=== PATIENT | male | born 1990 ===

== ENCOUNTER 2016-09-17 17:22 | Emergency (ER) | payer BC, OTHER ==
[~2016-09-17] VITALS: Ht 188 cm; Wt 83.9 kg
[2016-09-17] MEDS ORDERED: CLON1TAB4 PO (17:51)
[2016-09-17] MEDS ORDERED: QUET100T PO (17:51)
[2016-09-17] MEDS ORDERED: subutex PO (17:51)
--- NOTE | 2016-09-17 18:19 | NUR ---
Patient is seen drinking water, NAD, denies suicidal or homicidal thoughts@this time.
--- NOTE | 2016-09-17 18:41 | NUR ---
Per Dr Kaplan, this patient is waiting for a [facility] staff to come see/evaluate this patient in ER department.
[2016-09-17] MEDS: CLONAZEPAM 0.5 MG TABLET PO ONE (18:50)
--- NOTE | 2016-09-17 18:51 | NUR ---
Patient discharged to home in stable conditon. Written and verbal after care instructions given to patient and his healthcare provider from the private detox program. Patient verbalizes understanding of instructions.
[2016-09-17] MEDS ORDERED: CLONAZEPAM 1 MG TABLET ONE (18:56)
== END 2016-09-17 18:53 | disposition home or self-care (01) ==
LOC: ER 17:30
DX: F11.23 Opioid dependence with withdrawal (principal); F32.9 Major depressive disorder, single episode, unspecified; F41.9 Anxiety disorder, unspecified
CPT/HCPCS: 99282; A4663

== ENCOUNTER 2017-08-13 18:54 | Inpatient (IN) | payer BC, OTHER ==
[~2017-08-13] VITALS: Ht 188 cm; Wt 77.1 kg
[~2017-08-13 18:54] MED LIST: CLON1TAB4 PO; QUET100T PO; subutex PO
[2017-08-13] MEDS ORDERED: diphenhydrAMINE 50 MG CAPSULE PO PRN (22:30)
[2017-08-13] MEDS ORDERED: METHOCARBAMOL 750 MG TABLET PO PRN (22:30)
[2017-08-13] MEDS ORDERED: ONDANSETRON 4 MG/2 ML VIAL IM PRN (22:30)
[2017-08-13] MEDS ORDERED: CLONIDINE HCL 0.1 MG TABLET PO PRN (22:30)
[2017-08-13] MEDS ORDERED: NICOTINE POLACRILEX 4 MG GUM-PK OF TEN BC PRN (22:30)
[2017-08-13] MEDS ORDERED: MAGNESIUM HYDROXIDE 30 ML LIQUID UDC PO PRN (22:30)
[2017-08-13] MEDS ORDERED: LOPERAMIDE HCL 2 MG CAPSULE PO PRN ×2 (22:30)
[2017-08-13] MEDS ORDERED: NICOTINE 14 MG/24HR PATCH TD PRN (22:30)
[2017-08-13] MEDS ORDERED: DOCUSATE SODIUM 250 MG CAPSULE PO PRN (22:30)
[2017-08-13] MEDS ORDERED: ACETAMINOPHEN 325 MG TABLET PO PRN (22:30)
[2017-08-13] MEDS ORDERED: ONDANSETRON ODT 4 MG TAB.RAPDIS SL PRN (22:30)
[2017-08-13] MEDS ORDERED: LORAZEPAM 1 MG TABLET PO PRN ×2 (22:30)
[2017-08-13] MEDS ORDERED: MIRALAX 17 GM POWD.PACK PO PRN (22:30)
[2017-08-13] MEDS ORDERED: IBUPROFEN 600 MG TABLET PO PRN (22:30)
[2017-08-13] MEDS ORDERED: DICYCLOMINE HCL 20 MG TABLET PO PRN (22:30)
[2017-08-13] MEDS ORDERED: BUPRENORPHINE HCL 2 MG TAB.SUBL SL PRN (22:30)
[2017-08-13] MEDS ORDERED: MAG HYDROX/AL HYDROX/SIMETH 30 ML LIQUID UDC PO PRN (22:30)
[2017-08-13] MEDS ORDERED: LORAZEPAM 2 MG/1 ML VIAL IM PRN (22:30)
[2017-08-13] MEDS ORDERED: LORAZEPAM 1 MG TABLET PO SCH (23:30)
--- NOTE | 2017-08-13 23:30 | NUR ---
Intake Assessments Assessment done in intake office. Px is A&Ox4. Px is ambulatory with steady gait. Speech is clear and audible. Px appears unkempt, has dirty finger nails, itching, anxious, restless and agitated. VS as follows BP= 136/73 mmHg, ID= 85 bpm, RR=18 CPM, T= 97.6, O2sat= 97%. Pain on right hip is 3/10. Px reported seizure last 2 days ago. Advised px to provide urine for UDS. Admission process will be continued in the unit.
[2017-08-14] VITALS: BP 129/76
[2017-08-14 00:07] LABS: BASOPHILS # (AUTO) 0.1 K/uL (0.0-8.0); BASOPHILS % (AUTO) 0.8 % (0.0-2.0); EOSINOPHILS # (AUTO) 0.5 K/uL (0.0-0.7); EOSINOPHILS % (AUTO) 3.8 % (0.0-7.0); HEMATOCRIT 42.6 % (36.7-47.1); HEMOGLOBIN 14.2 g/dL (12.5-16.3); LYMPHOCYTES # (AUTO) 3.1 K/uL (20.0-40.0); LYMPHOCYTES % (AUTO) 21.5 % (20.5-51.5); MEAN CORPUSCULAR HEMOGLOBIN 28.5 uug (23.8-33.4); MEAN CORPUSCULAR HGB CONC 33 g/dL (32.5-36.3); MEAN CORPUSCULAR VOLUME 85.7 fL (73.0-96.2); MONOCYTES # (AUTO) 1.5 K/uL (2.0-10.0); MONOCYTES % (AUTO) 10.7 % (0.0-11.0); NEUTROPHILS # (AUTO) 9.1 K/uL (1.8-8.9); NEUTROPHILS % (AUTO) 63.2 % (38.5-71.5); PLATELET COUNT (AUTO) 193 K/uL (152-348); RED BLOOD CELL COUNT(AUTO) 4.98 MIL/uL (4.06-5.63); WHITE BLOOD COUNT (AUTO) 14.4 K/uL (3.6-10.2)
--- NOTE | 2017-08-14 00:10 | NUR ---
Admission Notes 26 y/o male puma admitted in [facility] on 08/13/2017 at for opiates and benzo medically supervised withdrawal. Px arrived in the unit at 2342. Body searched and skin check done. Skin scabs and scratches noted on both legs and right index finger, photos taken and put in the file. Puma is 6'2" tall and weighs 170 lbs. in standing scale. Puma was oriented in the unit floor and room. Px wishes to be in Full [facility]. Px is following a regular diet at home. Px has NKA. Px is A&Ox4. Px is cooperative but appears anxious and restless. Px is ambulatory with steady gait but limps sometimes due to right hip pain. Px verbalized "I only have hip pain during walking, about 8/10 and 3/10 if I am at rest, can I have a cane?" VS as follows BP= 129/76mmHg, OH= 81, RR= 18, O2sat= 98%, T=97.9. COWS= 9 and CIWA= 12. No N/V noted. No SOB. Respirations are even and unlabored. Abdomen soft and not distended. Last BM 08/13/2017. Bowel sounds are active in all 2 quadrants. Px reported PMHx of seizures, asthma, fractures, ADHD, anxiety and depression. Px denies any suicide thoughts and attempt. Px was able to provide urine for UDS. Substance Use: 1. Heroin- 0.5 G smoked inhalation for 4 months, last intake of 0.75 G on 08/13/2017 2. Xanax- 2 mg PO intermittent use for 10 years, last intake of 2 mg PO on 08/11/2017 3. [place]- 5/325 mg 14 pills intermittent use for 12 years, last intake of 7 pills PO on 08/06/2017 4. Dilaudid- 16 mg PO intermittent use for 2 months, last intake of 8 mg PO on 08/13/2017 5. Methamphetamine- 0.5 G smoked inhalation for 4 months, last intake of 0.25 G smoked on 08/13/2017 Px was hospitalized 2 days ago due to seizure. MRSA nasal swab done. Px reports his longest period of sobriety was in 2016 for 7 months. Px is a cigarette smoker of 1 pack a day. Px reports high anxiety, irritability and depression if he is not using drugs. Px agrees to get flu and pneumonia vaccines. Px doesn't have PCP. Bed in lowest position, fowlers position, side rails up 2x and call light within reach. We'll continue to monitor.
[2017-08-14 00:21] LABS: ALANINE AMINOTRANSFERASE 21 U/L (16-63); ALKALINE PHOSPHATASE 71 U/L (50-136); ASPARTATE AMINOTRANSFERASE 24 U/L (15-37); BILIRUBIN,TOTAL 0.2 mg/dL (0.2-1.0); CARBON DIOXIDE 32 mmol/L (21-32); CHLORIDE 103 mmol/L (98-107); CREATININE 1.2 mg/dL (0.6-1.3); GLUCOSE 107 mg/dL (74-106); MAGNESIUM 1.9 mg/dL (1.8-2.4); POTASSIUM 4.1 mmol/L (3.5-5.1); TOTAL PROTEIN, SERUM 7.8 g/dL (6.4-8.2); UREA NITROGEN, BLOOD 16 mg/dL (7-18)
[2017-08-14 00:26] LABS: *AMPHETAMINE, URINE POSITIVE (NEGATIVE); *BARBITURATE, URINE NEGATIVE (NEGATIVE); *CANNABINOID, URINE POSITIVE (NEGATIVE); *COCCAINE, URINE POSITIVE (NEGATIVE); *OPIATE, URINE POSITIVE (NEGATIVE); *PHENCYCLIDINE SCREEN,URINE NEGATIVE (NEGATIVE)
[2017-08-14 00:31] LABS: ETHANOL < 3 MG/DL (0-0)
--- NOTE | 2017-08-14 00:35 | NUR ---
Ativan 1x dose Px was given Ativan 1 mg/tab, 2 tabs PO as 1x dose. We'll continue to monitor.
[2017-08-14] MEDS ORDERED: NICO4GUM38 BC (02:59)
[2017-08-14 04:00] VITALS: BP 124/74
--- NOTE | 2017-08-14 04:00 | NUR ---
COWS and CIWA deferred COWS and CIWA deferred due to px is asleep, to assess if the px is awake per doctor's order. We'll continue to monitor.
--- NOTE | 2017-08-14 07:17 | NUR ---
End of Shift Notes Pxs COWS 9 and CIWA 12 at the time of admission. At 0035, Ativan 1 mg/tab, 2 tabs given PO as 1x dose. COWS and CIWA were not reassessed due to the px slept after administration of Ativan. Px had oral intake of 750 ml, voided 1x, with No BM. Px slept for 5 hours. At 0630, px was asleep on bed. Px's bed is on lowest position, side rails up 2x, call light within reach. Well continue to monitor. Px endorsed to AM shift nurse.
[2017-08-14 08:00] VITALS: BP 115/62
[2017-08-14] MEDS: MULTIVITAMINS,THERAPEUTIC TABLET PO SCH (09:00)
[2017-08-14] MEDS: TUBERCULIN,PURIF.PROT.DERIV. 5 TU/0.1 ML TEST ID ONE (09:00)
[2017-08-14] MEDS: LORAZEPAM 1 MG TABLET PO SCH ×3 (09:00→21:46)
[2017-08-14] MEDS: BUPRENORPHINE HCL 2 MG TAB.SUBL SL SCH ×4 (09:00→21:47)
[2017-08-14 12:00] VITALS: BP 94/37
--- NOTE | 2017-08-14 12:38 | NUR ---
patient has been sleeping un arousable to verbal and tactile stimulation, respirations un labored and pt snoring ,MD AWARE WILL CONTINUE TO MONITOR FOR SAFETY
--- NOTE | 2017-08-14 15:14 | NUR ---
patients subutex held due his drowsiness and not having cow of 12 , MD mcleod aware ativan 2mg given as ordered and pt had been up with physical therapy and requested a cane for right pain of which he denied knowing how it happened , he stated he was not in pain to this staff his cow is 2 at this time., isee history of falling 2 days ago.
[2017-08-14 16:00] VITALS: BP 123/54
[2017-08-14] MEDS ORDERED: TUBERCULIN,PURIF.PROT.DERIV. 5 TU/0.1 ML TEST ID ONE (16:45)
--- NOTE | 2017-08-14 17:46 | NUR ---
patient still unable to take his sub utex b/p 107/42 hr 63 16 100% no s/s of respiratory distress.continue to m,onitor patients vitals and behavior.
--- NOTE | 2017-08-14 18:44 | NUR ---
end of shift report , patient returned to sleeping soundly after a brief period of being up and going to [place] . pt has had poor oral intake all shift still drowsy , ambulates with cane due to right hip pain , continue to monitor for safety
--- NOTE | 2017-08-14 19:30 | NUR ---
Start of Shift Notes Received px awake eating on his bed and watching TV. Px appears unkempt and looks worried. Unfolded clothes noticed on the floor and on top of cabinet. Px verbalized that his anxiety is 7/10 and his right hip pain is scaled at 3/10. Bed is in lowest position, side rails up x2, and call light is within reach. Px was advised to call anytime if he needs anything. We'll continue to monitor.
[2017-08-14 20:00] VITALS: BP 139/60
[2017-08-14] MEDS: QUETIAPINE FUMARATE 100 MG TABLET PO PRN (23:19)
--- NOTE | 2017-08-14 23:19 | NUR ---
PRN meds At 2158, Px requested to get Nicotine gum, Nicotine gum 4 mg given. At 2318, Px asked for a pill to help him sleep tonight, Seroquel 100 mg/tab, 1 tab given PO as PRN med. We'll continue to monitor.
[2017-08-15] VITALS: BP 131/61
[2017-08-15 04:00] VITALS: BP 127/63
--- NOTE | 2017-08-15 04:00 | NUR ---
COWS and CIWA deferred COWS and CIWA deferred at 0000 and 0400 due to the px is asleep, to assess if the px is awake per doctor's order. We'll continue to monitor.
--- NOTE | 2017-08-15 07:19 | NUR ---
End of Shift Notes During early in the shift, px went down to the patio to smoke. Px played ping pong in the recreational room. Px used cane to ambulate most of the time. At 2159, Nicotine gum 4 mg given as px requested. Seroquel 100 mg/tab, 1 tab given PO as PRN med to help px sleep. It was effective. Px slept for 8 hours. Pxs oral intake is 1,300 ml, voided 3x, No BM. Last COWS 5, CIWA 6. At 0630, px left awake on bed eating snacks. Bed is in lowest position, side rails up padded x2, and call light is within reach. We'll continue to monitor. Endorse to AM shift nurse.
--- NOTE | 2017-08-15 07:45 | NUR ---
START OF SHIFT RECEIVED PT A/O X4, RESPIRATIONS EVEN AND UNLABORED. PT HAS A FLAT AFFECT, APPEARS DISHEVELED, GUARDED, AGITATED AND LABILE. PT REPORTS HAVING CHILLS, COLD/HOT SWEATS, SENSITIVITY TO LIGHT, ANXIETY, AND NASAL STUFFINESS. TREMORS ARE SEEN. PT IS USING A CANE TO SUPPORT WEAKNESS IN THE RIGHT HIP. ENCOURAGED PT TO INCREASE FLUIDS TO PROMOTE IN HYDRATION. SIDE RAILS UP X2, BED IS IN LOWEST POSITION. CALL LIGHT WITHIN REACH. ALL SAFETY MEASURES IN PLACE. WILL CONTINUE TO MONITOR.
[2017-08-15 08:00] VITALS: BP 113/60
[2017-08-15] MEDS ORDERED: HYDROXYZINE PAMOATE 25 MG CAPSULE PO PRN (09:00)
[2017-08-15] MEDS: BUPRENORPHINE HCL 2 MG TAB.SUBL SL SCH ×3 (09:40→21:43)
[2017-08-15] MEDS: MULTIVITAMINS,THERAPEUTIC TABLET PO SCH (09:40)
[2017-08-15] MEDS: LORAZEPAM 1 MG TABLET PO SCH ×3 (09:40→16:13)
[2017-08-15] MEDS: TUBERCULIN,PURIF.PROT.DERIV. 5 TU/0.1 ML TEST ID ONE ×2 (09:42→09:56)
--- NOTE | 2017-08-15 09:42 | NUR ---
PRN IBUPROFEN 600 MG PO PRN GIVEN FOR GENERALIZED BODY ACHES 01/12. WILL MONITOR FOR EFFECTIVENESS.
--- NOTE | 2017-08-15 10:35 | NUR ---
Therapist prompted client to go to groups today. Client will consider this.
--- NOTE | 2017-08-15 10:42 | NUR ---
REASSESSMENT PT REPORTED IBUPROFEN WAS EFFECTIVE FOR HIS GENERALIZED BODY ACHES NOW 09/12. WILL CONTINUE TO MONITOR.
[2017-08-15 12:00] VITALS: BP 125/60
[2017-08-15 13:17] LABS: HEPATITIS B SURFACE AG Negative (Negative)
[2017-08-15 16:00] VITALS: BP 126/62
--- NOTE | 2017-08-15 18:02 | NUR ---
BEHAVIORAL NOTE PT CAME TO THE NURSING STATION AG ANGRY ABOUT NOT HAVING A DINNER TRAY IN HIS ROOM. PT WAS RUDE AND RAISED HIS VOICE TO STAFF. STAFF LOCATED HIS TRAY INSIDE PT ROOM AND EXPLAINED IT WAS LEFT THERE WITHOUT WAKING PT UP DUE TO PT SLEEPING AND NOT WANTING TO DISTURB PT.
--- NOTE | 2017-08-15 19:31 | NUR ---
END OF SHIFT PT LAST COWS 5 AND CIWA 9 AT 1600. PT APPEARS DISHEVELED, WITH DIRTY FINGERNAILS. PT ROOM MESSY WITH SNACK WRAPPERS, FOOD AND CLOTHING ITEMS ON THE FLOOR AND ON TABLES. PT DISPLAYS DYSPHORIA, ANHEDONIA, AND AGITATION. PT REMAINED IN BED MOST OF THE DAY. PT DISPLAYED ANGER AND AGITATION TOWARDS STAFF; PT WAS SUCCESSFULLY REDIRECTED. PT ALL SAFETY MEASURES IN PLACE. WILL GIVE ALL PERTINENT INFO AND ENDORSEMENT TO HIGHWAY ENGINEER NURSE.
[2017-08-15 20:00] VITALS: BP 120/61
--- NOTE | 2017-08-15 20:00 | NUR ---
Start of Shift Notes Received asleep on bed in fowlers position. Clothes on the floor and unfinished snacks on the bed table noted. Px is not wearing shirt. Bed is in lowest position, side rails up padded 2x, and call light is within reach. We'll continue to monitor.
--- NOTE | 2017-08-15 20:00 | NUR ---
COWS and CIWA deferred COWS and CIWA deferred due to the px is asleep, to assess if the px is awake per doctor's order. We'll continue to monitor.
[2017-08-15] MEDS ORDERED: LORAZEPAM 1 MG TABLET PO SCH (21:00)
[2017-08-15] MEDS: QUETIAPINE FUMARATE 100 MG TABLET PO PRN (23:05)
--- NOTE | 2017-08-15 23:05 | NUR ---
PRN Seroquel Px requested for Seroquel to help him sleep tonight. Seroquel 100 mg/tab, 1 tab given PO as PRN med. We'll continue to monitor.
[2017-08-16] VITALS: BP 122/68
[2017-08-16 04:00] VITALS: BP 116/63
--- NOTE | 2017-08-16 07:26 | NUR ---
End of Shift Notes Px slept most of the time throughout the shift. Seroquel 100 mg/tab, 1 tab given PO as PRN med, and it was effective. Px slept for 9 hours. Px oral intake of 1 L, voided 2x, No BM. Last COWS 5 and CIWA 7. Left asleep on bed in fowlers position. Bed on lowest position, side rails 2x, and call light within reach. We'll continue to monitor. Endorse to AM shift nurse.
--- NOTE | 2017-08-16 07:45 | NUR ---
START OF SHIFT Rcvd endorse from ongoing nurse, client is in bed, a/o x 3, scattered clothes and open snacks hazardously around his room, primary nurse cleaned floors and encourage client to keep his environment clean and encourage for him to take a shower, he presents with irritable mood, flat affect. He reports chills, body aches, upset stomach, and cravings for substance use. Encourage client to attend group therapy for skills to maintain sober. Encourage to drink PO fluids to maintain hydration and to assist with detox, he verbalized understanding. Client denies any N/V/D. Client is admitted for medically supervised withdrawal from heroin and alprazolam. He is on last of 5 day Ativan/ 5 day Subutex taper. Last CI 5 @ 0400. PRN Seroquel 100mg Po for inability to sleep, he slept 9 hrs. The patient reports a history of withdrawal-induced seizures. Side rails x 2 up/padded. Call light within reach.
--- NOTE | 2017-08-16 08:00 | NUR ---
Client refused chest X-ray to rule out TB; elev WBC, cough, refuse PPD, he stated, "They can come back later, I just need to sleep." Inform client that at 0900 med pass, tech will come back to take X-ray, he said, "Sure."
[2017-08-16 08:55] VITALS: BP 128/62
[2017-08-16] MEDS ORDERED: BUPRENORPHINE HCL 2 MG TAB.SUBL SL SCH (09:00)
[2017-08-16] MEDS: LORAZEPAM 1 MG TABLET PO SCH ×2 (09:51→15:55)
[2017-08-16] MEDS: MULTIVITAMINS,THERAPEUTIC TABLET PO SCH (09:51)
--- NOTE | 2017-08-16 10:00 | NUR ---
Client refused chest X-ray, stating, "What I need is an MRI, for my nerve pain all over my body, not an x-ray. Inform client chest x-ray is to rule out TB since due to cough, increase WBC, and refusal of PPD test. He stated, "I don't have any cough." He denies any night sweats or cough. MD and CN notified.
--- NOTE | 2017-08-16 10:29 | NUR ---
Education on FLU/PNA vaccine provided, encourage client to receive vaccines, but he still refuse.
[2017-08-16 12:20] VITALS: BP 123/68
[2017-08-16] MEDS: BUPRENORPHINE HCL 2 MG TAB.SUBL SL SCH ×2 (15:54→21:38)
[2017-08-16 16:20] VITALS: BP 120/63
--- NOTE | 2017-08-16 19:30 | NUR ---
START OF SHIFT Pt is a 26 y/o male admitted on 08/13/17 for opiate, benzo and meth withdrawal. Pt in on a 5 day Ativan and Subutex taper, tolerating well. Upon assessment pt presents with anxiety, agitation, restlessness, hip pain, flat affect, irritability, sweats, anhedonia, dysphoria and is emotionally labile. Safety measures in place. Call light within reach. No scheduled medications due at this time. Will continue to monitor.
--- NOTE | 2017-08-16 19:46 | NUR ---
START OF SHIFT Rcvd endorse from ongoing nurse, client is in bed, a/o x 3, scattered clothes and open snacks hazardously around his room, primary nurse cleaned floors and encourage client to keep his environment clean and encourage for him to take a shower, he presents with irritable mood, flat affect. He reports chills, body aches, upset stomach, and cravings for substance use. Encourage client to attend group therapy for skills to maintain sober. Encourage to drink PO fluids to maintain hydration and to assist with detox, he verbalized understanding. Client denies any N/V/D. Client is admitted for medically supervised withdrawal from heroin and alprazolam. He is on last of 5 day Ativan/ 5 day Subutex taper. Last 5 @ 0400. PRN Seroquel 100mg Po for inability to sleep, he slept 9 hrs. The patient reports a history of withdrawal-induced seizures. Side rails x 2 up/padded. Call light within reach. Addendum: 08/16/17 at 1947 by MAKENNA PABLO RN Wrong time
--- NOTE | 2017-08-16 19:48 | NUR ---
END OF SHIFT Endorse client to incoming form ongoing nurse, client is in room, client is a/o x 3, he continue to present with anxious mood, flat affect, he isolated in his room, he reports fatigue. Client denies any N/V/D. Adequate PO fluid intake 1400mL, void x 1. Last CIWA 12 @ 1600. Client reports a history of withdrawal-induced seizures. Side rails x 2 up/padded. Call light within reach.
[2017-08-16 20:00] VITALS: BP 112/63
--- NOTE | 2017-08-16 20:30 | NUR ---
BEHAVIORAL NOTE Pt had an episode of behavioral escalation and verbally attacked a staff member and pt became defensive. Pt slowly calmed down after further communication with staff.
[2017-08-16] MEDS ORDERED: LORAZEPAM 1 MG TABLET PO SCH (21:00)
[2017-08-16] MEDS: QUETIAPINE FUMARATE 100 MG TABLET PO PRN (22:10)
--- NOTE | 2017-08-16 22:10 | NUR ---
PRN SEROQUEL ADMINISTRATION Pt requests sleep aid for insomnia, appears restless. Safety measures in place. Call light within reach. Will continue to monitor.
--- NOTE | 2017-08-16 23:10 | NUR ---
PRN SEROQUEL REASSESSMENT Pt laying in bed with eyes closed, Seroquel effective. Safety measures in place. Call light within reach. Will continue to monitor.
--- NOTE | 2017-08-17 | NUR ---
COWS/CIWA DEFERRED AND VITALS REFUSED Pt laying in bed with eyes closed, COWS/CIWA deferred, to be assessed when pt is awake per orders. Vitals refused. Respirations even and unlabored. Safety measures in place. Call light within reach. Will continue to monitor.
--- NOTE | 2017-08-17 07:24 | NUR ---
END OF SHIFT Pt is a 26 y/o male admitted on 08/13/17 for opiate, benzo and meth withdrawal. Pt in on a 5 day Ativan and Subutex taper, tolerating well. Pt has steady gait but uses a cane for ambulation assistance as needed r/t hip pain. Pt had an episode of behavioral escalation and verbally attacked a staff member and pt became defensive. Pt eventually calmed down after further communication with staff. Pts room remains unkempt. Pt presented with anxiety, agitation, difficulty falling asleep, restlessness, hip pain, flat affect, irritability, sweats, anhedonia, dysphoria and was emotionally labile. Scheduled medications and PRN Seroquel administered, effective in S/S of withdrawal as verbalized by pt. Pt refused pain medications for hip pain, states It doesnt do anything. Last COWS 7 and CIWA 9. Pt slept 9 hours. Intake 1600 ml, void x 1, stool x 0. Safety measures in place. Call light within reach. Pts needs have been met. Endorsed to day shift nurse.
--- NOTE | 2017-08-17 07:30 | NUR ---
Start of shift note: [facility] from [facility] shift lead [facility], pt is in stable condition no s/s of pain or discomfort, pt's room is with clothes thrown on the floor and garbage around the room. pt's last noted cows was 7 and ciwa 9. pt is admitted to [facility] for opiate/benzo/meth withdrawal/dependence. will encourage pt to comply with unit rules and regulations and enforce ongoing boundaries
[2017-08-17] MEDS ORDERED: BUPRENORPHINE HCL 2 MG TAB.SUBL SL SCH ×2 (09:00→21:00)
[2017-08-17] MEDS: MULTIVITAMINS,THERAPEUTIC TABLET PO SCH (10:08)
[2017-08-17] MEDS: LORAZEPAM 1 MG TABLET PO SCH ×2 (10:09→20:26)
[2017-08-17 11:50] VITALS: BP 123/61
[2017-08-17 12:28] VITALS: BP 142/91
[2017-08-17 17:26] VITALS: BP 145/86
--- NOTE | 2017-08-17 19:17 | NUR ---
END OF SHIFT NOTE: PT IS IN STABLE CONDITION NO S/S OF PAIN OR DISCOMFORT, PT IS ADMITTED TO [facility] FOR OPIATE/BENZO AND METH. PT TOLERATED TAPER WELL. NO A/R NOTED. PTS LAST COWS 7 AND LAST CIWA 6. WILL ENDORSE PT TO FISH FILLETER NURSE.
--- NOTE | 2017-08-17 19:25 | NUR ---
START OF SHIFT Patient is a 26-year-old male admitted on 08/13/17 for heroin, xanax, norco, dilaudid, and meth withdrawal. Patient is on day 4 of 5-day ativan and 5-day subutex taper. Last COWS 7, CIWA 6 per day shift. Patient received no PRNs today. Patient uses a cane to ambulate and reports hip pain, upon waking, of 8/10 on pain scale but refuses PRN pain medication (robaxin, motrin, etc.) stating "I dont want sugar pills, I am used to taking morphine and dilaudid." Patient appears distressed, disheveled, unshaven and irritable. Patient is scheduled for ativan and subutex at 2100. Safety measures in place, bed locked in low position, side rails up x2, call light within reach. Will continue to monitor.
[2017-08-17 20:00] VITALS: BP 143/83
[2017-08-17] MEDS: QUETIAPINE FUMARATE 100 MG TABLET PO PRN (21:38)
--- NOTE | 2017-08-17 21:38 | NUR ---
PRN SEROQUEL Patient reports difficulty sleeping and is requesting aid. PRN Seroquel 100mg given PO. Safety measures in place, call light within reach. Will reassess for effectiveness.
--- NOTE | 2017-08-17 22:38 | NUR ---
PRN SEROQUEL REASSESSMENT Patient is laying in bed with eyes closed, respirations even and unlabored. PRN Seroquel effective. Safety measures in place, call light within reach. Will continue to monitor.
--- NOTE | 2017-08-18 | NUR ---
VITALS REFUSED, COWS & CIWA DEFERRED Patient refused midnight vitals. Respirations are even and unlabored, 16/min. COWS and CIWA deferred due to patient sleeping; to be assessed and scored while patient is awake per protocol. Patient's cane is resting by bedside. Safety measures in place, call light within reach. Will continue to monitor.
--- NOTE | 2017-08-18 04:00 | NUR ---
VITALS REFUSED, COWS & CIWA DEFERRED Patient refused 4AM vitals. Pt's cane is propped up against side rail. Respirations are even and unlabored, 16/min. COWS and CIWA deferred due to patient sleeping; to be assessed and scored while patient is awake per protocol. Safety measures in place, bed locked in low position, side rails up x2, call light within reach. Will continue to monitor.
--- NOTE | 2017-08-18 07:20 | NUR ---
END OF SHIFT Patient is a 26-year-old male admitted on 08/13/17 for heroin, xanax, norco, dilaudid, and meth withdrawal. Patient slept for 6 hours, total intake of 1,100 mL, void x2, stool x0. Patient received PRN Seroquel for difficulty sleeping. Patient was able to sleep soon after PRN administration; PRN Seroquel effective. Today is patients day 5 of 5-day Subutex and 5-day Ativan taper. Last COWS was 8, last CIWA 8. Patient has verbalized desire to receive MRI while at [facility]. Nurse instructed patient to discuss MRI with MD in the morning while MD makes his rounds. Safety measures in place, bed locked in low position, side rails up x2, call light within reach. Will endorse to day shift.
--- NOTE | 2017-08-18 07:30 | NUR ---
START OF SHIFT Received report from night shift manager nurse. Pt is a 26 yr old male, AA&Ox4. Pt was admitted on 08/13/17 for opiate/benzo withdrawal. Pt is on day 5 of 5 day Subutex and Ativan taper as ordered. Pt received Seroquel PRN during the night for sleep. Medication was effective. Pt slept for 6 hrs. Last COWS and CIWA score report was 8. Pt is currently in bed sleeping with respirations even and unlabored. Safety precautions observed. Call light is within reach. Will continue to monitor.
[2017-08-18 08:00] VITALS: BP 102/53
--- NOTE | 2017-08-18 08:00 | NUR ---
COWS AND CIWA DEFERRED Pt is currently in bed sleeping with respirations even and unlabored. COWS and CIWA score is deferred. Will continue to monitor.
[2017-08-18] MEDS ORDERED: LORAZEPAM 1 MG TABLET PO SCH (09:00)
[2017-08-18] MEDS ORDERED: BUPRENORPHINE HCL 2 MG TAB.SUBL SL SCH (09:00)
[2017-08-18] MEDS: MULTIVITAMINS,THERAPEUTIC TABLET PO SCH (09:05)
--- NOTE | 2017-08-18 09:10 | NUR ---
COWS AND CIWA SCORE Pt is awake and oriented x4. Pt states of feeling "fine". Denies any pain. Pt is observed with flat affect and is noted with dirty hands and finger nails. Pt appearance is disheveled and noted with dirty clothes and trash on the floor. COWS score is 4 and CIWA score is 4 at this time. Encouraged increase fluid intake. Safety precautions observed. Will continue to monitor.
[2017-08-18 12:12] VITALS: BP 123/58
[2017-08-18 16:00] VITALS: BP 139/80
--- NOTE | 2017-08-18 18:49 | NUR ---
END OF SHIFT Pt is a 26 yr old male, AA&Ox4. Pt has completed a 5 day Ativan and Subutex taper today on 08/18/17. Pt is to be discharged home tomorrow on 08/19/17. Pt has been cooperative with medication regimen and plan of care. No PRNs were given during the day. Pt states of having anxiety during the day. Pt was encouraged to attend group therapy. Pt was able to take a shower today. Last COWS score was 6 and CIWA score was 5 at 1600. Pt consumes 100% of meals. Safety precautions observed. Call light is within reach.
--- NOTE | 2017-08-18 19:14 | NUR ---
Start of shift note Received report from day shift nurse. Pt is a26 yo male, A+Ox4, presenting to [facility] for Opiate/Benzo/Meth withdrawal. Pt noted with restlessness and anxiety 09/12. Pt is still using cane for ambulation. Pt has HX of Seizure, Anxiety, Depression, Asthma, and Insomnia which will be monitored throughout shift. Pt has completed 5 day Ativan and 5 day Subutex tapers, tolerated well, and is due for discharge tomorrow. Respirations even and unlabored. Will continue to monitor.
[2017-08-18 20:19] VITALS: BP 146/79
[2017-08-18] MEDS ORDERED: CLON0.1T14 PO (22:09)
[2017-08-18] MEDS ORDERED: METH-406 PO (22:09)
[2017-08-18] MEDS ORDERED: NICO4GUM38 BC (22:09)
[2017-08-18] MEDS ORDERED: IBUP-1955 PO (22:09)
[2017-08-18] MEDS ORDERED: HYDR-3895 PO (22:09)
[2017-08-18] MEDS ORDERED: DOCU250C14 PO (22:09)
[2017-08-18] MEDS ORDERED: DICY20TA28 PO (22:09)
[2017-08-18] MEDS: QUETIAPINE FUMARATE 100 MG TABLET PO PRN (23:03)
--- NOTE | 2017-08-18 23:03 | NUR ---
PRN Seroquel Pt c/o inability to sleep and requested for PRN Seroquel. Medication given and tolerated well. Will continue to monitor.
--- NOTE | 2017-08-19 00:02 | NUR ---
PRN Seroquel Reassessment Medication effective. Pt is resting well in bed. No s/s of ASE/distress noted at this time. Respirations even and unlabored. Will continue to monitor.
[2017-08-19 00:37] VITALS: BP 141/76
[2017-08-19 04:21] VITALS: BP 135/82
--- NOTE | 2017-08-19 06:50 | NUR ---
End of shift note Pt was noted with Restlessness, inability to sleep, and Anxiety throughout shift. Pt is still using cane for ambulation assistance. Pt was given PRN Seroquel @2303 for sleep aid which helped the patient to eventually fall asleep. Pt slept for a total of 7 HRS. Pt's COWS score stayed steadily at 4 and CIWA score stayed steadily at 4 from [id number]. Pt has completed 5 day Ativan and 5 day Subutex tapers, tolerated well, and is due for discharge today. Respirations even and unlabored. Will endorse to day shift nurse.
--- NOTE | 2017-08-19 07:46 | NUR ---
BEGINNING OF SHIFT Patient endorsement report received from ceramic tile mechanic nurse, all pertinent information discussed. Patient is a 26 year old male with admitting Dx: Opiate withdrawal. Patient continues under very close observation, patient scheduled To be discharged this morning, patient completed 5 day ativan and 5 day subutex taper. Per ceramic tile mechanic patient with last ciwa score of: 4, last ciwa score of: 4. Received PRN: Seroquel medication during ceramic tile mechanic. , Slept for 7 hours, Fall and seizure precautions observed at all times. Patient received awake, alert and oriented x4, educated regarding plan of care for the day, will educate regarding all discharge instructions. will continue to monitor closely. safety measures in place.
[2017-08-19 08:09] VITALS: BP 122/79
[2017-08-19] MEDS: MULTIVITAMINS,THERAPEUTIC TABLET PO SCH (08:53)
--- NOTE | 2017-08-19 09:50 | NUR ---
DISCHARGE patient discharged off the unit at 0950, in stable condition, not in any apparent acute distress. Prior to discharge patient was provided with education and teaching regarding all discharge instructions with good verbal understanding. Patients home medications, prescriptions and discharge instructions were placed in personal duffel bag. patient off the unit at 0950 in stable condition. with no s/sx of withdrawal and vital signs WNL.
== END 2017-08-19 09:50 | disposition home or self-care (01) | DRG 895 ==
LOC: SRC 21:59
PROVIDERS: ADMIT Internal Medicine; ATTEND Internal Medicine
PROC: HZ2ZZZZ Detoxification Services for Substance Abuse Treatment (ICD-10-PCS; principal; 2017-08-13)
PROC: HZ31ZZZ Individual Counseling for Substance Abuse Treatment, Behavioral (ICD-10-PCS; 2017-08-15)
PROC: HZ41ZZZ Group Counseling for Substance Abuse Treatment, Behavioral (ICD-10-PCS; 2017-08-18)
DX: F11.23 Opioid dependence with withdrawal (principal); F14.10 Cocaine abuse, uncomplicated; F17.210 Nicotine dependence, cigarettes, uncomplicated; F13.239 Sedative, hypnotic or anxiolytic dependence with withdrawal, unspecified; F15.23 Other stimulant dependence with withdrawal; J45.20 Mild intermittent asthma, uncomplicated; Z91.89 Other specified personal risk factors, not elsewhere classified; F90.9 Attention-deficit hyperactivity disorder, unspecified type; G47.00 Insomnia, unspecified; F41.9 Anxiety disorder, unspecified; Z81.1 Family history of alcohol abuse and dependence; Z81.8 Family history of other mental and behavioral disorders; I10 Essential (primary) hypertension; R26.81 Unsteadiness on feet; M77.9 Enthesopathy, unspecified
CPT/HCPCS: 36415; 70030-TC; 71045; 80307; 80324; 80346; 80349; 80353; 80361; 83735; 85025; 86592; 86705; 86803; 87340; 87806; G0480